=== PATIENT | female | born 1945 | race Two or more races ===

== ENCOUNTER 2022-08-28 10:04 | Outpatient (REF) | payer MEDICARE, OTHER, SELFPAY ==
--- NOTE | ~2022-08-28 | XR_ITS ---
EXAMINATION: XR SHOULDER, LEFT CLINICAL INFORMATION: Shoulder pain COMPARISON: None available. TECHNIQUE: AP external rotation, Grashey, scapular Y, and axillary views of the left shoulder. FINDINGS: The bones and soft tissues are normal. No fracture. Glenohumeral and acromioclavicular alignment is anatomic with normal joint space. No abnormal soft tissue calcifications. XR/XR shoulder LT min 2V IMPRESSION: Normal left shoulder.
== END 2022-08-28 10:05 | disposition home or self-care (01) ==
LOC: HO.XRAY 10:04
PROVIDERS: Visit Provider Internal Medicine Geriatric Medicine
DX: M25.512 Pain in left shoulder (principal)
CPT/HCPCS: 73030

== ENCOUNTER → 2022-09-03 08:59 | Outpatient (BNVA) | payer MEDICARE, OTHER, SELFPAY | PROVIDERS: PCP Internal Medicine Geriatric Medicine; Visit Provider Orthopaedic Surgery | DX: M75.52 Bursitis of left shoulder (principal) | CPT/HCPCS: 99202 ==

== ENCOUNTER 2022-10-09 08:00 | Outpatient (RCR) | payer MEDICARE, OTHER, SELFPAY ==
--- NOTE | 2022-09-30 09:44 | MHC.PT.EP ---
[facility] [place] Office [place] Office [place] Office [address] Rosana Finney [address] [phone] F: [phone] F: [phone] F: [phone] F: [phone] Physical Therapy Plan of Care Date of Evaluation: Date of Surgery: Diagnosis: bursitis of L shoulder Assessment: 77 y/o RHD female referred to PT with L shoulder bursitis. S/s consistent with referring dx and ?bicipital tendonipathy resulting in pain and difficulty with lifting arm, grooming, reaching behind back, donning bra, reaching overhead, and carrying grocery bags secondary to decreased L shoulder A/PROM, decreased L shoulder strength, impaired posture, limited cervical ROM, TTP biceps, and pain. Recommend PT 2x/week for 5 weeks to address impairments, implement HEP, and optimize functional mobility. Frequency and Duration: The patient will be seen 2x/week for 5 weeks Short Term Goals: 3 weeks Compliant with HEP Improve L shoulder AROM flexion to 90* with pain < 4/10 Preventive Medicine Physician Goals: 5 weeks I with HEP and self management of sx Pt will be able to perform grooming with pain < 3/10 Pt will be able to carry grocery bag with L UE and pain < 3/10 Pt will demonstrate L shoulder flexion >120* Treatment Plan: Modalities to reduce pain, spasms and effusion. Manual therapy to restore motion and function. Therapeutic exercise to improve strength and flexibility. Neuromuscular re-education for posture and balance. Therapeutic activities to return to functional activities of daily living. Electronically signed by: Neeta Guzman PT Please sign and return to therapist. Thank you for your referral.
--- NOTE | 2022-11-10 08:35 | MHC.PT.DC ---
[facility] [place] Office [place] Office [place] Office [address] Rosana Finney [address] [phone] F: [phone] F: [phone] F: [phone] F: [phone] Physical Therapy Discharge Report Diagnosis: bursitis of L shoulder Date of Surgery: Date of Evaluation: 09/30/22 Date of Discharge: 11/10/22 Treatments to Date: 2 Cancellations to Date: 6 No Shows to Date: 2 Discharge Status: Visit Non-compliance Discharge Summary: Pt did not f/u with further visits following vacation in [place]. Poor attendance noted prior to vacation as well with 2 no show visits and > 3 cancellations. D/c at this time Electronically signed by: Neeta Guzman PT Please sign and return to therapist. Thank you for your referral.
== END 2022-11-10 08:36 | disposition home or self-care (01) ==
LOC: HO.PT 08:00
PROVIDERS: PCP Internal Medicine Geriatric Medicine; Visit Provider Orthopaedic Surgery
DX: M75.52 Bursitis of left shoulder (principal)
CPT/HCPCS: 97110; 97162

== ENCOUNTER 2022-10-16 08:00 | Outpatient (REF) | payer MEDICARE, OTHER, SELFPAY ==
[2022-10-16 12:04] LABS: Anion Gap 18 (12-20); Blood Urea Nitrogen 15 mg/dL (9-16); Carbon Dioxide 17 mmol/L (22-29); Chloride 109 mmol/L (96-108); Estimated Glomerular Filt Rate > 60; Glucose Random 93 mg/dL (60-115); Potassium 3.6 mmol/L (3.3-5.1); Sodium 140 mmol/L (135-145)
== END 2022-10-16 08:01 | disposition home or self-care (01) ==
LOC: HO.HHCL 08:00
PROVIDERS: Visit Provider Internal Medicine Geriatric Medicine
DX: I10 Essential (primary) hypertension (principal)
CPT/HCPCS: 36415; 80048

== ENCOUNTER 2022-12-10 11:36 | Outpatient (AMB) | payer MEDICARE, SELFPAY ==
--- NOTE | 2022-12-10 10:20 | A.OFFVIS_ITS ---
Intake Vital Signs 12/10/22 11:36 Height 5 ft 3 in Weight 180 lb BMI 31.9 Intake Visit Reasons: ov- Bursitis of left shoulder Intake Note: Isabel is a 77 year old female who presents today for a follow up of her left shoulder bursitis. Patient reports that she is having continued pain in the right shoulder, she has done PT but feels that this has made the shoulder worse. She is still hesitant to do injections. Allergies No Known Allergies Allergy (Verified 12/10/22 11:40) HPI ov- Bursitis of left shoulder HPI Details Isabel is a 77 year old woman with left shoulder bursitis. She continues to have pain with overhead activity and at night, which radiates into her lateral deltoid. She has completed a course of PT, which was somewhat helpful, and is looking to have an injection today. She has hesitated to have injections in the past because she is fearful of them but physical therapy was not helpful enough to alleviate her pain. She describes pain at night that prevents her from sleeping. 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 Review of Systems Const All systems reviewed & are unremarkable except as noted in HPI and below Physical Exam Vital Signs: BMI result Body Mass Index 31.9 Const General: no acute distress, alert and awake Orientation/consciousness: patient oriented x3 HEENT Head: Yes normocephalic and Yes atraumatic Eyes EOM: EOMs intact bilaterally Resp Effort & Inspection: normal respiratory effort and able to speak in complete sentences Cardio Jugular venous distension: no JVD Skin General skin exam: turgor normal Rashes: no rashes Neuro General: patient oriented x3 Extrem Other: Left Shoulder: + H&N Painful but grossly - empty can Emily-scapular TTP Psych Appearance: grossly normal Affect: normal affect Attitude: cooperative Office Procedures Joint Injection/Drain Joint Injection/Drain Details: Injected 1 mL of Decadron and 3 mL 1% lidocaine and 3 mL of 0.25% Marcaine. Site was prepped using aseptic technique. Patient tolerated the procedure well. Primary Site: left shoulder Approach Used: posterolateral Coding 31798 - Large joint Procedure code (CPT) selection complete Results Reviewed Results Reviewed: 12/10/22 11:47 BUPivacaine MPF 0.25 % [Sensorcaine-MPF 0.25% 10 ML] 10 ml .ROUTE .STK-MED ONE Lidocaine HCl 2 % MPF [Xylocaine 2 % MPF] 5 ml .ROUTE .STK-MED ONE dexAMETHasone sod phosphate [Decadron] 4 mg .ROUTE .STK-MED ONE Assessment & Plan Assessment & Plan (1) Bursitis of left shoulder: Code(s): M75.52 - Bursitis of left shoulder Plan: This is a 77 year old woman with left shoulder bursitis. She has pain primarily with overhead activity and at night, which improved somewhat with PT. I discussed treatment options. I injected her left shoulder bursa today, which she tolerated well. She can follow up prn. Coding Level of Care Code Est Pt Level 3 (43670) Diagnoses Bursitis of left shoulder M75.52 CPT Codes Coding - 45064 Large joint: 96775 - Large joint ([id number])
[2022-12-10 11:36] VITALS: BMI 31.9
== END 2022-12-10 12:05 | disposition home or self-care (01) ==
PROVIDERS: PCP Internal Medicine Geriatric Medicine; Visit Provider Orthopaedic Surgery
DX: M75.52 Bursitis of left shoulder (principal)
CPT/HCPCS: 20610; 99213

== ENCOUNTER → 2022-12-10 11:36 | Outpatient (BNVA) | payer MEDICARE, SELFPAY | PROVIDERS: PCP Internal Medicine Geriatric Medicine; Visit Provider Orthopaedic Surgery | DX: M75.52 Bursitis of left shoulder (principal) | CPT/HCPCS: 20610; 99212; J1100 ==

== ENCOUNTER 2023-05-13 08:01 | Outpatient (REF) | payer MEDICARE, SELFPAY ==
[2023-05-13 11:52] LABS: Anion Gap 14 (12-20); Blood Urea Nitrogen 13 mg/dL (9-16); Calcium 10.1 mg/dL (8.4-10.2); Carbon Dioxide 23 mmol/L (22-29); Chloride 109 mmol/L (96-108); Estimated Glomerular Filt Rate > 60; Glucose Random 93 mg/dL (60-115); Potassium 4.1 mmol/L (3.3-5.1); Sodium 142 mmol/L (135-145)
== END 2023-05-13 08:02 | disposition home or self-care (01) ==
LOC: HO.HHCL 08:01
PROVIDERS: Visit Provider Internal Medicine Geriatric Medicine
DX: I10 Essential (primary) hypertension (principal)
CPT/HCPCS: 36415; 80048

== ENCOUNTER 2023-10-06 10:10 | Outpatient (REF) | payer MEDICARE, SELFPAY ==
[2023-10-06 12:06] LABS: Alanine Aminotransferase 17 U/L (0-31); Albumin Level 4.3 g/dL (3.5-5.0); Alkaline Phosphatase 100 U/L (39-117); Anion Gap 12 (12-20); Aspartate Amino Transferase 19 U/L (5-31); Bilirubin Total 0.4 mg/dL (0.0-1.0); Blood Urea Nitrogen 14 mg/dL (9-16); Calcium 9.6 mg/dL (8.4-10.2); Carbon Dioxide 22 mmol/L (22-29); Chloride 111 mmol/L (96-108); Cholesterol 231 mg/dL (<200); Estimated Glomerular Filt Rate > 60; Glucose Random 90 mg/dL (60-115); HDL Cholesterol 54 mg/dL (>40); LDL Cholesterol Calculated 152 mg/dL (<100); Potassium 3.9 mmol/L (3.3-5.1); Sodium 141 mmol/L (135-145); Total Protein 7.6 g/dL (6.5-8.0); Triglycerides 125 mg/dL (<150)
== END 2023-10-06 10:11 | disposition home or self-care (01) ==
LOC: HO.HHCL 10:10
PROVIDERS: Visit Provider Internal Medicine Geriatric Medicine
DX: I10 Essential (primary) hypertension (principal); E55.9 Vitamin D deficiency, unspecified; R12 Heartburn
CPT/HCPCS: 36415; 80053; 80061

== ENCOUNTER 2024-06-16 08:35 | Outpatient (REF) | payer MEDICARE, SELFPAY | END 2024-06-16 08:36 | disposition home or self-care (01) | LOC: HO.HHCL 08:35 | PROVIDERS: Visit Provider Internal Medicine Geriatric Medicine | DX: Z13.89 Encounter for screening for other disorder (principal) ==

== ENCOUNTER 2024-08-28 08:52 | Outpatient (REF) | payer MEDICARE, SELFPAY ==
--- OUTSIDE RECORDS SUMMARY | 2024-08-28 09:04 | XMS_ITS | Encounter Summary ---
Author Organization [facility] Address [address] [place] [address] [address] [place] [address] Care Team Providers Care Collections And Archives Director Name Role Phone Name, Leonardo SAUCEDA Primary Care Provider [phone] Rebekah Morales PharmD Unavailable Encounter Details Date Type Department Care Team (Late st Contact Info) Description 02/11/2022 Abstract [facility] [address] [place] [id number] Provider, MD Daniel Social History Tobacco Use Types Packs/Day Years Used Date Smoking Tobacco: Never Assessed Comments Unknown Sex and Gender Information Value Date Recorded Sex Assigned at Female 01/19/2022 10:40 AM EDT Legal Sex Female 10:40 AM EDT Gender Identity Female 01/19/2022 10:40 AM EDT Sexual Orientation Straight 01/19/2022 10 :40 AM EDT documented as of this encounter Plan of Treatment Upcoming Encounters Date Type Department Care Team (Late st Contact Info) Description 09/06/2024 9:45 AM EDT Office Visit [facility] [address] [place] [phone] NameLeonardo MD [address] [place] [id number] documented as of this encounter Visit Diagnoses Not on filedocumented in this encounter Care Teams Collections And Archives Director Relationship Specialty Start Date End Date Leonardo Lehman MD [address] [place] [phone] PCP - General Family Medicine 01/09/22 Rebekah Morales, PharmD [address] [place] [address], [place] [address] Pharmacist Internal Medicine 05/06/22 11/18/23 documented as of this encounter
[2024-08-28 11:52] LABS: Alanine Aminotransferase 20 U/L (0-31); Albumin Level 4.3 g/dL (3.5-5.0); Alkaline Phosphatase 85 U/L (39-117); Anion Gap 11 (12-20); Aspartate Amino Transferase 34 U/L (5-31); Bilirubin Total 0.7 mg/dL (0.0-1.0); Blood Urea Nitrogen 17 mg/dL (9-16); Calcium 9.5 mg/dL (8.4-10.2); Carbon Dioxide 24 mmol/L (22-29); Chloride 110 mmol/L (96-108); Cholesterol 232 mg/dL (<200); Estimated Glomerular Filt Rate > 60; Glucose Random 100 mg/dL (60-115); HDL Cholesterol 56 mg/dL (>40); LDL Cholesterol Calculated 145 mg/dL (<100); Potassium 4.5 mmol/L (3.3-5.1); Sodium 140 mmol/L (135-145); Total Protein 7.4 g/dL (6.5-8.0); Triglycerides 155 mg/dL (<150)
[2024-08-28 12:10] LABS: ~HepC Num1 0.09 S/CO (0.00-0.79); ~Hepatitis C Antibody Nonreactive (Nonreactive)
== END 2024-08-28 08:53 | disposition home or self-care (01) ==
LOC: HO.HHCL 08:52
PROVIDERS: Visit Provider Internal Medicine Geriatric Medicine
DX: Z11.59 Encounter for screening for other viral diseases (principal); Z79.899 Other long term (current) drug therapy; I10 Essential (primary) hypertension
CPT/HCPCS: 36415; 80053; 80061; 86803